=== PATIENT | male | born 1935 | race Caucasian/White ===

== ENCOUNTER 2018-07-01 13:17 | Inpatient (IN) | payer MEDICARE, BC ==
[2018-07-01] MEDS ORDERED: fentaNYL 100 MCG/2 ML SDV IM ONE (14:12)
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
--- NOTE | 2018-07-01 14:49 | CR ---
Hip Min 2V or 3V Lt CLINICAL HISTORY: Pain, fall FINDINGS: No acute fracture or dislocation is noted. No destructive changes are present. The joint sp genesis is maintained. There is acetabular spurring. There is a small convexity on the lateral femoral ne ck. This may cause some femoral acetabular impingement of the combined type. There is some mild spurr ing of the greater trochanteric ligamentous insertions. Impression: Acetabular spurring and can type formation of the femoral neck may cause femoral acetabul ar impingement of the combined type Bony and cortical irregularity over the greater trochanter is likely related to spurring at the ligam entous insertions. If clinical symptomatology persists or worsens repeat exam is recommended
[2018-07-01] MEDS ORDERED: Ketorolac 30 MG/ML SDV IM ONE (14:58)
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
[2018-07-01] MEDS ORDERED: Albuterol 0.083% 2.5 MG/3 ML Neb Soln NEB PRN (18:24)
[2018-07-01] MEDS ORDERED: Polyethylene Glycol 3350 Powder 17 GM Packet PO PRN (18:24)
[2018-07-01] MEDS ORDERED: Magnesium Hydroxide 400 MG/5 ML Susp 30 ML Cup PO PRN (18:24)
[2018-07-01] MEDS ORDERED: Ondansetron 4 MG/2 ML SDV IV PRN (18:24)
[2018-07-01] MEDS ORDERED: Acetaminophen 325 MG Tab PO PRN (18:24)
[2018-07-01] MEDS ORDERED: Sodium Chloride 0.9% 10 ML Syringe FLUSH PRN (18:24)
[2018-07-01] MEDS ORDERED: Citalopram 20 MG Tab PO SCH (18:30)
[2018-07-01] MEDS ORDERED: Non-Formulary Medication 1 Each (Loratadine [Loratadine] 10 MG) PO SCH (18:30)
[2018-07-01] MEDS ORDERED: Phytonadione 1 MG in Sodium Chloride 0.9% 50 ML IV ONE (18:57)
[2018-07-01] MEDS: Sodium Chloride 0.9% 1,000 ML IV SCH (20:25)
[2018-07-01] MEDS: oxyCODONE 5 MG Tab PO PRN (22:58)
[2018-07-02] MEDS: Sodium Chloride 0.9% 1,000 ML IV SCH ×2 (05:02→13:13)
[2018-07-02] MEDS ORDERED: Loratadine 10 MG Tab PO PRN (08:00)
[2018-07-02] MEDS: amLODIPine 5 MG Tab PO SCH (08:35)
[2018-07-02] MEDS: Aspirin 81 MG Tab.EC PO SCH (08:36)
[2018-07-02] MEDS: Allopurinol 100 MG Tab PO SCH (08:36)
[2018-07-02] MEDS: Citalopram 20 MG Tab PO SCH (08:36)
[2018-07-02] MEDS: oxyCODONE 5 MG Tab PO PRN ×3 (09:29→21:14)
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
[2018-07-02] MEDS: Pravastatin 20 MG Tab PO SCH (21:13)
[2018-07-03] MEDS: Aspirin 81 MG Tab.EC PO SCH (08:37)
[2018-07-03] MEDS: amLODIPine 5 MG Tab PO SCH (08:38)
[2018-07-03] MEDS: Allopurinol 100 MG Tab PO SCH (08:38)
[2018-07-03] MEDS ORDERED: Warfarin 2.5 MG Tab PO SCH (13:00)
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
[2018-07-03] MEDS: Pravastatin 20 MG Tab PO SCH (20:20)
[2018-07-03] MEDS: oxyCODONE 5 MG Tab PO PRN (22:17)
[2018-07-04] MEDS: Aspirin 81 MG Tab.EC PO SCH (09:03)
[2018-07-04] MEDS: Allopurinol 100 MG Tab PO SCH (09:03)
[2018-07-04] MEDS: amLODIPine 5 MG Tab PO SCH (09:03)
[2018-07-04] MEDS: Citalopram 20 MG Tab PO SCH (09:03)
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
[2018-07-04] MEDS: oxyCODONE 5 MG Tab PO PRN (11:22)
== END 2018-07-04 11:45 | disposition home or self-care (01) | DRG 536 ==
LOC: JP.ED 13:17 → JP.2SS 18:18
PROVIDERS: ADMIT Hospitalist; ATTEND Hospitalist
DX: S32.315A Nondisplaced avulsion fracture of left ilium, initial encounter for closed fracture (principal); Z68.41 Body mass index [BMI] 40.0-44.9, adult; S70.02XA Contusion of left hip, initial encounter; V86.55XA Driver of 3- or 4- wheeled all-terrain vehicle (ATV) injured in nontraffic accident, initial encounter; I10 Essential (primary) hypertension; I48.91 Unspecified atrial fibrillation; Z79.01 Long term (current) use of anticoagulants; M25.552 Pain in left hip; R26.2 Difficulty in walking, not elsewhere classified; Z87.891 Personal history of nicotine dependence; Z79.82 Long term (current) use of aspirin; E78.00 Pure hypercholesterolemia, unspecified; G47.30 Sleep apnea, unspecified; H91.90 Unspecified hearing loss, unspecified ear; E66.9 Obesity, unspecified; R79.1 Abnormal coagulation profile
CPT/HCPCS: 73502 ×2; 73700; 96372; 99285; J1885; J3010; 36415; 80048; 85025; 85610; 94762; 97161-GP; 97530-GP; 97535-GP; A9270-GY; J3430; J7030; J7050